=== PATIENT | male | born 1930 | race Caucasian/White ===

== ENCOUNTER → 2016-08-26 | Outpatient (CLI) | payer MEDICARE, BC ==
[2016-08-26 14:03] LABS: CH 33.4; CHCM 32.6; HCT 49.8 % (39.0-53.0); HDW 2.35; HGB 15.8 gm/dL (13.0-17.5); MCH 32.8 pg (25.0-35.0); MCHC 31.8 g/dL (31.0-37.0); Macrocytosis Slight; Mean Platelet Volume 8.1; RBC 4.83 m/uL (4.30-5.90); RDW 13.3 % (11.5-15.5); WBC 6.2 k/uL (3.8-10.6)
[2016-08-26 14:18] LABS: ALT 31 U/L (21-72); AST 24 U/L (17-59); Alkaline Phosphatase 45 U/L (38-126); Anion Gap 9 mmol/L; Bilirubin, Delta 0.6 mg/dL (0.0-0.2); Blood Urea Nitrogen 18 mg/dL (9-20); Calcium 9.6 mg/dL (8.4-10.2); Carbon Dioxide 31 mmol/L (22-30); Chloride 99 mmol/L (98-107); Digoxin <0.4 ng/mL; Glucose 108 mg/dL (74-99); Non-African American GFR(MDRD) >60 (>60 ml/min/1.73 sqM); Potassium 5.2 mmol/L (3.5-5.1); Sodium 139 mmol/L (137-145); Total Bilirubin 1.5 mg/dL (0.2-1.3); Total Protein 7.9 g/dL (6.3-8.2)
[2016-08-26 14:46] LABS: Hepatitis B Surface Ag Index 0.06
[2016-08-26 14:52] LABS: Hepatitis B Core IgM Index 0.05
[2016-08-26 15:04] LABS: Hepatitis C Virus IgG Index 0.31
[2016-08-26 15:09] LABS: Hepatitis C Virus IgG Ab Negative (Negative)
[2016-08-26 16:03] LABS: Hemoglobin A1C 5.7 % (4.2-6.1)
== END | disposition home or self-care (01) ==
LOC: LABWHC1 13:11
PROVIDERS: ATTEND Family Medicine
DX: E80.6 Other disorders of bilirubin metabolism (principal); R19.7 Diarrhea, unspecified; I48.91 Unspecified atrial fibrillation; I10 Essential (primary) hypertension; E11.9 Type 2 diabetes mellitus without complications
CPT/HCPCS: 36415; 80053; 80074; 80162; 82248; 83036; 85027

== ENCOUNTER → 2016-09-06 | Outpatient (CLI) | payer MEDICARE, BC | END | disposition home or self-care (01) | LOC: LABWHC1 12:36 | PROVIDERS: ATTEND Family Medicine | DX: R79.9 Abnormal finding of blood chemistry, unspecified (principal) | CPT/HCPCS: 36415; 84132 ==

== ENCOUNTER → 2017-03-16 | Outpatient (CLI) | payer MEDICARE, BC ==
[2017-03-16 11:50] LABS: CH 33.7; CHCM 32.1; HCT 53.9 % (39.0-53.0); HDW 2.31; HGB 17.1 gm/dL (13.0-17.5); MCH 33.5 pg (25.0-35.0); MCHC 31.7 g/dL (31.0-37.0); MCV 105.5 fL (80.0-100.0); Macrocytosis Moderate; Mean Platelet Volume 8.2; RBC 5.11 m/uL (4.30-5.90); RDW 14.2 % (11.5-15.5); WBC 6.1 k/uL (3.8-10.6)
[2017-03-16 12:02] LABS: ALT 38 U/L (21-72); AST 24 U/L (17-59); Alkaline Phosphatase 43 U/L (38-126); Anion Gap 9 mmol/L; Blood Urea Nitrogen 20 mg/dL (9-20); Calcium 9.4 mg/dL (8.4-10.2); Carbon Dioxide 32 mmol/L (22-30); Chloride 99 mmol/L (98-107); Cholesterol 171 mg/dL (<200); Glucose 110 mg/dL (74-99); HDL Cholesterol 57 mg/dL (40-60); Non-African American GFR(MDRD) >60 (>60 ml/min/1.73 sqM); Potassium 5.7 mmol/L (3.5-5.1); Sodium 140 mmol/L (137-145); Total Bilirubin 1.4 mg/dL (0.2-1.3); Total Protein 7.6 g/dL (6.3-8.2)
[2017-03-16 12:26] LABS: Digoxin <0.4 ng/mL
== END | disposition home or self-care (01) ==
LOC: LABWHC1 11:19
PROVIDERS: ATTEND Family Medicine
DX: I10 Essential (primary) hypertension (principal); E11.9 Type 2 diabetes mellitus without complications; I25.10 Atherosclerotic heart disease of native coronary artery without angina pectoris; I48.91 Unspecified atrial fibrillation
CPT/HCPCS: 36415; 80053; 80061; 80162; 83036; 85027

== ENCOUNTER 2017-08-22 12:30 | Day surgery (SDC) | payer MEDICARE, BC ==
[2017-08-14 13:15] VITALS: BMI 25.0
[~2017-08-22 12:30] MED LIST: LACTATED RINGERS 1,000 ML IV SCH; LIDOCAINE 1% 20 ML VIAL (10MG/ML) FOR IV START INTRADERMA PRN; ONDANSETRON 4 MG/2 ML VIAL IVP ONE
[2017-08-22 13:48] VITALS: RESP 16; TEMP 98.3
[2017-08-22] MEDS: PHENYLEPHRINE 10% OPHTH DROPS 5 ML BTL OP ONE ×3 (13:50→14:11)
[2017-08-22] MEDS: CYCLOPENTOLATE 1% OPHTH SOLN 2 ML BTL OP ONE ×3 (13:53→14:15)
[2017-08-22] MEDS: FLURBIPROFEN 0.03% OPHTH DROPS 2.5 ML BTL OP ONE ×3 (13:57→14:21)
[2017-08-22] MEDS: BUPIVACAINE (PF) 0.75% 5 ML, HYALURONIDASE, HUMAN RECOMB 150 UNIT, LIDOCAINE 2% (PF) 10... MISCELLANE ONE ×6 (14:28→14:40)
[2017-08-22] MEDS: GENTAMICIN/PREDNISOL AC OPHTH OINT 3.5GM OPHTHALMIC ONE ×2 (14:29→14:40)
[2017-08-22] MEDS: TIMOLOL 0.5% OPHTH SOLN (PF) 0.2 ML DROPERETTE OP ONE ×2 (14:29→14:40)
[2017-08-22] MEDS ORDERED: BALANCED SALT IRRIG SOLN COMB2 15 ML IRRIG.SOLN INTRAOCULA ONE ×2 (14:29→14:40)
[2017-08-22] MEDS ORDERED: HYALURONATE SODIUM INTRAOCULAR 1 EACH SYRINGE (10MG/ML) INTRAOCULA ONE ×4 (14:30→14:40)
[2017-08-22] MEDS ORDERED: PROPOFOL 10 MG/ML 20 ML VIAL IV ONE (14:33)
[2017-08-22] MEDS ORDERED: EPINEPHrine (PF) 0.5 ML in BALANCED SALT IRRIG SOLN COMB2 500 ML IRRIGATION ONE (15:01)
[2017-08-22] MEDS ORDERED: ACETYLCHOLINE CHLORIDE 10 MG/ML 2 ML KIT INTRAOCULA ONE (15:05)
--- NOTE | 2017-08-22 15:12 | P.OP ---
Date of Procedure: 08/22/17 Procedure(s) Performed: PREOPERATIVE DIAGNOSIS: Cataract and Glaucoma, right eye. POSTOPERATIVE DIAGNOSIS: Cataract and Glaucoma, right eye. OPERATION: Phacoemulsification cataract, lens placement, I-stent insertion, right eye. DESCRIPTION OF PROCEDURE: The patient was taken to the preoperative holding area. Intravenous Propofol was given so as to bring about adequate sedation. The following mixture was given for local anesthesia: 5 mL of 2% lidocaine, 5 mL of 0.75% Marcaine, and 1 mL of Wydase. Approximately 4 mL was injected in the retrobulbar space of the surgical eye. Additional 1 mL was then directed to the temporal area of the surgical eye. This was performed to allow adequate neurological block of the facial muscles. The patient was revived and then taken into the operative room. The patient was prepped and draped in the usual sterile manner for the operative eye. A lid speculum was put into position. The conjunctiva was resected back from the limbus in the 12 o'clock position. Bleeding was controlled with electrocautery. A #69 blade was then used and a half-thickness scleral incision approximately 1-mm posterior to the limbus was made on bare sclera. This was shelved in the clear cornea using a crescent knife. Next a 15-degree blade was used to make a stab incision at the 3 o' clock position at the corneolimbal interface. Keratome blade was then used and the superior wound was extended into the anterior chamber. Viscoelastic was injected into the anterior chamber and to maintain its form. An I-stent was placed into position without difficulty. Next, a cystotome was used and a continuous anterior capsulotomy was made without difficulty. Hydrodissection using a blunt cannula and BSS was performed. Phaco probe was then employed and a groove extending from 12 to 6 o'clock in the lens was created. A Vasyl wand was used through the stab incision so as to perform a divide and conquer technique. Next an irrigation aspiration probe was utilized and any residual cortex was removed from the eye. Again, viscoelastic was injected into the anterior chamber. An Lexa posterior chamber lens implant was placed in the cartridge and injected into the anterior chamber without difficulty. The [place] hook was utilized to spin the lens into position and this was again performed without any difficulty. The irrigation and aspiration probe was again employed and any residual viscoelastic was removed from the eye. BSS and miochol was injected into the limbal stab incision and the anterior chamber re- inflated. The conjunctiva was reapproximated using electrocautery. One drop of 0.25% Timoptic was placed over the corneal along with TobraDex ophthalmic ointment. Two sterile patches and a Mcbride eye shield were taped into position. The patient was transported to the recovery room in stable condition. Pathology: none sent Condition: stable Disposition: same day
[2017-08-22 15:44] VITALS: BP 169/73; PULSE 46
== END 2017-08-22 15:52 | disposition home or self-care (01) ==
LOC: OR 12:30
PROVIDERS: ATTEND Ophthalmology
DX: H26.9 Unspecified cataract (principal); H40.1110 Primary open-angle glaucoma, right eye, stage unspecified; I10 Essential (primary) hypertension; I51.9 Heart disease, unspecified; I49.9 Cardiac arrhythmia, unspecified; Z79.01 Long term (current) use of anticoagulants; Z79.899 Other long term (current) drug therapy; Z87.891 Personal history of nicotine dependence; Z88.6 Allergy status to analgesic agent
CPT/HCPCS: 66984; 66183; V2632; C1783; J3470; J2001; J0171; J2704

== ENCOUNTER 2017-10-03 11:14 | Day surgery (SDC) | payer MEDICARE, BC ==
[2017-09-29 09:01] VITALS: BMI 25.6
[2017-10-03] MEDS: PHENYLEPHRINE 10% OPHTH DROPS 5 ML BTL OP ONE ×3 (12:00→12:17)
[2017-10-03] MEDS: CYCLOPENTOLATE 1% OPHTH SOLN 2 ML BTL OP ONE ×3 (12:03→12:19)
[2017-10-03 12:04] VITALS: RESP 18; TEMP 97.7
[2017-10-03] MEDS: FLURBIPROFEN 0.03% OPHTH DROPS 2.5 ML BTL OP ONE ×3 (12:06→12:20)
[2017-10-03] MEDS: LACTATED RINGERS 1,000 ML IV SCH ×2 (12:12→12:20)
[2017-10-03] MEDS ORDERED: PROPOFOL 10 MG/ML 20 ML VIAL IV ONE (12:22)
[2017-10-03] MEDS ORDERED: EPINEPHrine (PF) 0.5 ML in BALANCED SALT IRRIG SOLN COMB2 500 ML IRRIGATION ONE (12:26)
[2017-10-03] MEDS ORDERED: HYALURONATE SODIUM INTRAOCULAR 1 EACH SYRINGE (10MG/ML) INTRAOCULA ONE (12:27)
[2017-10-03] MEDS ORDERED: BALANCED SALT IRRIG SOLN COMB2 15 ML IRRIG.SOLN INTRAOCULA ONE (12:27)
--- NOTE | 2017-10-03 12:51 | P.OP ---
Date of Procedure: 10/03/17 Procedure(s) Performed: PREOPERATIVE DIAGNOSIS: Cataract and Glaucoma, left eye. POSTOPERATIVE DIAGNOSIS: Cataract and Glaucoma, left eye. OPERATION: Phacoemulsification, 1. Cataract removal, lens implant left eye. 2. I-stent placement left eye DESCRIPTION OF PROCEDURE: The patient was taken to the preoperative holding area. Intravenous Propofol was given so as to bring about adequate sedation. The following mixture was given for local anesthesia: 5 mL of 2% lidocaine, 5 mL of 0.75% Marcaine, and 1 mL of Wydase. Approximately 4 mL was injected in the retrobulbar space of the surgical eye. Additional 1 mL was then directed to the temporal area of the surgical eye. This was performed to allow adequate neurological block of the facial muscles. The patient was revived and then taken into the operative room. The patient was prepped and draped in the usual sterile manner for the operative eye. A lid speculum was put into position. The conjunctiva was resected back from the limbus in the 12 o'clock position. Bleeding was controlled with electrocautery. A #69 blade was then used and a half-thickness scleral incision approximately 1-mm posterior to the limbus was made on bare sclera. This was shelved in the clear cornea using a crescent knife. Next a 15-degree blade was used to make a stab incision at the 3 o' clock position at the corneolimbal interface. Keratome blade was then used and the superior wound was extended into the anterior chamber. Viscoelastic was injected into the anterior chamber and to maintain its form. Using a hand held gonioprism for guidance, an I-stent was placed thru the inferior trabecular meshwork and into Schlemm's canal. It was strummed to ensure proper placement. Next, a cystotome was used and a continuous anterior capsulotomy was made without difficulty. Hydrodissection using a blunt cannula and BSS was performed. Phaco probe was then employed and a groove extending from 12 to 6 o'clock in the lens was created. A Vasyl wand was used through the stab incision so as to perform a divide and conquer technique. Next an irrigation aspiration probe was utilized and any residual cortex was removed from the eye. Again, viscoelastic was injected into the anterior chamber. An Lexa posterior chamber lens implant was placed in the cartridge and injected into the anterior chamber without difficulty. The [place] hook was utilized to spin the lens into position and this was again performed without any difficulty. The irrigation and aspiration probe was again employed and any residual viscoelastic was removed from the eye. Then BSS was injected into the limbal stab incision and the anterior chamber re-inflated. The conjunctiva was reapproximated using electrocautery. One drop of 0.25% Timoptic was placed over the corneal along with TobraDex ophthalmic ointment. Two sterile patches and a Mcbride eye shield were taped into position. The patient was transported to the recovery room in stable condition. Pathology: none sent Condition: stable Disposition: same day
[2017-10-03 13:13] VITALS: BP 158/78; PULSE 54
[2017-10-03] MEDS ORDERED: GENTAMICIN/PREDNISOL AC OPHTH OINT 3.5GM OPHTHALMIC ONE (23:00)
[2017-10-03] MEDS ORDERED: BUPIVACAINE (PF) 0.75% 5 ML, HYALURONIDASE, HUMAN RECOMB 150 UNIT, LIDOCAINE 2% (PF) 10... MISCELLANE ONE ×3 (23:00)
[2017-10-03] MEDS ORDERED: TIMOLOL 0.5% OPHTH DROPS 5 ML BTL OP ONE (23:00)
== END 2017-10-03 13:58 | disposition home or self-care (01) ==
LOC: OR 11:14
PROVIDERS: ATTEND Ophthalmology
DX: H26.9 Unspecified cataract (principal); H40.9 Unspecified glaucoma; I48.91 Unspecified atrial fibrillation; I10 Essential (primary) hypertension; I27.20 Pulmonary hypertension, unspecified; Z87.891 Personal history of nicotine dependence; Z98.41 Cataract extraction status, right eye; Z96.1 Presence of intraocular lens; Z88.6 Allergy status to analgesic agent; Z79.01 Long term (current) use of anticoagulants; Z79.899 Other long term (current) drug therapy
CPT/HCPCS: 0191T; 66984

== ENCOUNTER 2017-10-29 03:06 | Emergency (ER) | payer OTHER, MEDICARE, BC ==
[2017-10-29 03:20] VITALS: TEMP 98.2
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
[2017-10-29] MEDS ORDERED: MORPHINE SULF 5MG/10ML VL IV STA (04:13)
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
[2017-10-29] MEDS ORDERED: RX INFO: IV CONTRAST WAS GIVEN 1 EACH MISC MISCELLANE PRN (04:19)
[2017-10-29 04:24] LABS: Appearance,Urine Clear (Clear); Basophils % (A) 0 %; Bilirubin,Urine Negative (Negative); Blood,Urine Negative (Negative); Color,Urine Yellow; Eosinophils # (A) 0.1 k/uL (0-0.7); Eosinophils % (A) 1 %; Glucose,Urine (UA) 3+ (Negative); HCT 48.9 % (39.0-53.0); HGB 16.1 gm/dL (13.0-17.5); Leukocyte Esterase,Urine Negative (Negative); Lymphocytes # (A) 0.9 k/uL (1.0-4.8); Lymphocytes % (A) 10 %; MCH 32.6 pg (25.0-35.0); MCV 98.8 fL (80.0-100.0); Monocytes # (A) 0.5 k/uL (0-1.0); Monocytes % (A) 5 %; Neutrophils # (A) 7.5 k/uL (1.3-7.7); Neutrophils % (A) 83 %; Nitrite,Urine Negative (Negative); PH, Urine 6.5 (5.0-8.0); Platelet Count 117 k/uL (150-450); Protein,Urine Trace (Negative); RBC 4.95 m/uL (4.30-5.90); RDW 13.8 % (11.5-15.5); Specific Gravity,Urine 1.015 (1.001-1.035); Urobilinogen,Urine <2.0 mg/dL (<2.0); WBC 9.1 k/uL (3.8-10.6)
[2017-10-29 04:31] LABS: INR 2.8 (<1.2); Partial Thromboplastin Time 27.3 sec (22.0-30.0); Prothrombin Time 25.5 sec (9.0-12.0)
[2017-10-29 04:34] LABS: ALT 22 U/L (21-72); AST 24 U/L (17-59); Albumin 4.1 g/dL (3.5-5.0); Alcohol <10 mg/dL; Alkaline Phosphatase 54 U/L (38-126); Anion Gap 14 mmol/L; Blood Urea Nitrogen 22 mg/dL (9-20); Calcium 9.8 mg/dL (8.4-10.2); Carbon Dioxide 27 mmol/L (22-30); Chloride 99 mmol/L (98-107); Glucose 154 mg/dL (74-99); Potassium 4.7 mmol/L (3.5-5.1); Sodium 140 mmol/L (137-145); Total Bilirubin 1.6 mg/dL (0.2-1.3); Total Protein 7.7 g/dL (6.3-8.2)
[2017-10-29 04:35] LABS: Amphetamine Screen,Urine Not Detected (NotDetected); Barbiturate Screen,Urine Not Detected (NotDetected); Benzodiazepines Screen,Urine Not Detected (NotDetected); Cocaine Screen,Urine Not Detected (NotDetected); Methadone Screen, Urine Not Detected (NotDetected); Opiate Screen,Urine Not Detected (NotDetected); Oxycodone Screen, Urine Not Detected (NotDetected); Phencyclidine Screen,Urine Not Detected (NotDetected); Tricyclic Antidepressant,Urine Not Detected (NotDetected); Urn Cannabinoid Scrn Not Detected (NotDetected)
[2017-10-29 04:41] LABS: Ketones,Urine 2+ (Negative)
[2017-10-29 05:09] VITALS: BP 187/98; PULSE 78; RESP 16
--- NOTE | 2017-10-29 05:22 | CT ---
EXAM: CT Chest With Intravenous Contrast CLINICAL HISTORY: ITS.REASON CT Reason: Pain TECHNIQUE: Axial computed tomography images of the chest with intravenous contrast. CTDI is 11.8 mGy and DLP is 891.3 mGy-cm. This CT exam was performed using one or more of the following dose reduction techniques: automated exposure control, adjustment of the mA and/or kV according to patient size, and/or use of iterative reconstruction technique. COMPARISON: No relevant prior studies available. FINDINGS: Lungs: Left lower lobe atelectasis. Pleural space: Scattered pleural-based calcifications. No pneumothorax. No significant effusion. Heart: Coronary artery calcifications. No significant pericardial effusion. Bones/joints: Unremarkable. No acute fracture. No dislocation. Soft tissues: Unremarkable. Vasculature: Unremarkable. No thoracic aortic aneurysm. Lymph nodes: Subcentimeter mediastinal lymph nodes. IMPRESSION: No acute findings. Left lower lobe atelectasis. EXAM: CT Abdomen and Pelvis With Intravenous Contrast CLINICAL HISTORY: ITS.REASON CT Reason: Pain TECHNIQUE: Axial computed tomography images of the abdomen and pelvis with intravenous contrast. CTDI is 11.8 mGy and DLP is 891.3 mGy-cm. This CT exam was performed using one or more of the following dose reduction techniques: automated exposure control, adjustment of the mA and/or kV according to patient size, and/or use of iterative reconstruction technique. COMPARISON: No relevant prior studies available. FINDINGS: Lung bases: Unremarkable. No mass. No consolidation. ABDOMEN: Liver: Unremarkable. No mass. Gallbladder and bile ducts: Unremarkable. No calcified stones. No ductal dilation. Pancreas: Unremarkable. No mass. No ductal dilation. Spleen: Unremarkable. No splenomegaly. Adrenals: Unremarkable. No mass. Kidneys and ureters: Unremarkable. No solid mass. No hydronephrosis. Stomach and bowel: Scattered colonic diverticula without evidence of acute inflammation. No obstruction. No mucosal thickening. Appendix: No findings to suggest acute appendicitis. PELVIS: Bladder: Unremarkable. No mass. Reproductive: Unremarkable as visualized. ABDOMEN and PELVIS: Intraperitoneal space: Unremarkable. No free air. No significant fluid collection. Bones/joints: No acute fracture. No dislocation. Soft tissues: Unremarkable. Vasculature: 3.4 cm infrarenal abdominal aortic aneurysm. Lymph nodes: Unremarkable. No enlarged lymph nodes. IMPRESSION: No acute findings. 3.4 cm infrarenal abdominal aortic aneurysm. Colonic diverticulosis.
== END 2017-10-29 05:15 | disposition other institution (70) ==
LOC: EC 03:06
DX: S06.309A Unspecified focal traumatic brain injury with loss of consciousness of unspecified duration, initial encounter (principal); I48.91 Unspecified atrial fibrillation; I10 Essential (primary) hypertension; Z95.818 Presence of other cardiac implants and grafts; Z87.891 Personal history of nicotine dependence; Z79.01 Long term (current) use of anticoagulants; Z79.899 Other long term (current) drug therapy; Z88.6 Allergy status to analgesic agent; V49.40XA Driver injured in collision with unspecified motor vehicles in traffic accident, initial encounter; Y92.410 Unspecified street and highway as the place of occurrence of the external cause
CPT/HCPCS: 99291; 96374; 36415; 93005; 86900; 86901; 80053; 83605; 84484; 85025; 85610; 85730; 86850; 81003; 80306; 80320; 72170; 71045; 72125; 70450; 71260; 74177; Q9967; J2270

== ENCOUNTER → 2018-03-22 | Outpatient (CLI) | payer MEDICARE, BC ==
[2018-03-22 16:02] LABS: HCT 46.2 % (39.0-53.0); HGB 14.2 gm/dL (13.0-17.5); MCH 31.7 pg (25.0-35.0); MCHC 30.6 g/dL (31.0-37.0); MCV 103.4 fL (80.0-100.0); Macrocytosis Slight; Mean Platelet Volume 7.5; Platelet Count 157 k/uL (150-450); RBC 4.47 m/uL (4.30-5.90); RDW 12.5 % (11.5-15.5); WBC 7.2 k/uL (3.8-10.6)
[2018-03-22 16:20] LABS: Calcium 9.4 mg/dL (8.4-10.2); Potassium 5.1 mmol/L (3.5-5.1)
[2018-03-23 01:55] LABS: Hemoglobin A1C 5.5 % (4.0-6.0)
== END | disposition home or self-care (01) ==
LOC: LABWHC1 15:21
PROVIDERS: ATTEND Family Medicine
DX: E11.9 Type 2 diabetes mellitus without complications (principal); I10 Essential (primary) hypertension
CPT/HCPCS: 36415; 80048; 83036; 84450; 84460; 85027

== ENCOUNTER 2018-06-25 13:38 | Emergency (ER) | payer MEDICARE, BC ==
[2018-06-25 14:00] VITALS: RESP 18; TEMP 98.2
--- NOTE | 2018-06-25 14:31 | ED ---
Fall HPI <Jorge L Garcia - Last Filed: 06/25/18 15:40> - General Source: patient, EMS, RN notes reviewed, old records reviewed Mode of arrival: EMS <Vira Andres - Last Filed: 06/25/18 16:19> - General Chief Complaint: Fall Stated Complaint: Fall head injury Time Seen by Provider: 06/25/18 13:44 - History of Present Illness Initial Comments: Patient is an 87-year-old male, presents emergency Department after trip and fall. He reports that he hit his head. Also complains of right shoulder pain. Patient reports that he was walking when he lost his balance. He arrived via EMS. The he does report significant contusion over the right side of his scalp. He reports pain with any range of motion of the right shoulder. Patient reports that he had a previous brain bleed approximately 6 months ago. ( Vira Andres) - Related Data Home Medications Medication Instructions Recorded Confirmed Dorzolamide/Timolol/Pf [Cosopt Pf 1 applicator BOTH EYES BID 08/14/17 06/25/18 2%/5% Ophth Droperette] Latanoprost Ophth [Xalatan 0.005%] 1 drops RIGHT EYE HS 08/14/17 06/25/18 Losartan [Cozaar] 50 mg PO DAILY 08/14/17 06/25/18 amLODIPine BESYLATE 5 mg PO DAILY 06/25/18 06/25/18 Allergies Allergy/AdvReac Type Severity Reaction Status Date / Time aspirin AdvReac Abdominal Verified 06/25/18 14:09 Pain AND BLEEDING Review of Systems ROS Other: All systems not noted in ROS Statement are negative. <Jorge L Garcia - Last Filed: 06/25/18 15:40> ROS Other: All systems not noted in ROS Statement are negative. <Vira Andres - Last Filed: 06/25/18 16:19> ROS Statement: Those systems with pertinent positive or pertinent negative responses have been documented in the HPI. Past Medical History Past Medical History: Atrial Fibrillation, Hypertension, Osteoarthritis (OA) Additional Past Medical History / Comment(s): brain bleed History of Any Multi-Drug Resistant Organisms: None Reported Past Surgical History: Heart Catheterization Additional Past Surgical History / Comment(s): ANGIOGRAM OF THE NECK, Catatracts.States he had carotid artery surgery. Past Anesthesia/Blood Transfusion Reactions: No Reported Reaction Past Psychological History: No Psychological Hx Reported Smoking Status: Former smoker Past Alcohol Use History: Daily Past Drug Use History: None Reported - Past Family History Mother Family Medical History: No Reported History <Viar Andres - Last Filed: 06/25/18 16:19> General Exam <Jorge L Garcia - Last Filed: 06/25/18 15:40> Limitations: no limitations General appearance: alert, in no apparent distress, other Head exam: Present: normocephalic, normal inspection. Absent: atraumatic ( Contusion over ) Eye exam: Present: normal appearance, PERRL, EOMI. 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 Absent: systolic murmur, diastolic murmur, rubs, gallop, clicks Right Shoulder Exam: Present: tenderness (Patient is unable to perform any range of motion of the shoulder due to pain.). Absent: normal inspection, full ROM Upper Arm exam: Present: normal inspection, full ROM Elbow exam: Present: full ROM. Absent: normal inspection (Is no skin tear over the elbow.) Hand Wrist exam: Present: normal inspection Neuro motor exam: Present: wrist extension intact, thumb opposition intact, thumb IP flexion intact, thumb adduction intact, fingers 2-5 abduction intact Back exam: Present: normal inspection Neurological exam: Present: alert, oriented X3, CN II-XII intact Psychiatric exam: Present: normal affect, normal mood Skin exam: Present: warm, dry, intact, normal color. Absent: rash <Vira Andres - Last Filed: 06/25/18 16:19> - General Exam Comments Initial Comments: Patient states showed male. Alert and oriented 3. (Vira Andres) Course <Jorge L Garcia - Last Filed: 06/25/18 15:40> <Vira Andres - Last Filed: 06/25/18 16:19> Vital Signs 06/25/18 06/25/18 13:55 15:27 Temperature 98.2 F Pulse Rate 77 90 Respiratory 18 18 Rate Blood Pressure 174/89 175/105 O2 Sat by Pulse 98 97 Oximetry - Reevaluation(s) Reevaluation #1: 06/25/18 16:01 Delayed transfer because Patient was adamant that he was going to go. I had a call his daughter to convince him to be willing to transfer to [facility]. ( Vira Andres) Medical Decision Making <Jorge L Garcia - Last Filed: 06/25/18 15:40> - Radiology Data Radiology results: report reviewed <Vira Andres - Last Filed: 06/25/18 16:19> - Medical Decision Making Patient with fall, head trauma, previous history of intracranial hemorrhage. Head CT is obtained, does show 4 mm subarachnoid hemorrhage. I did reevaluate the patient after head CT findings. He has a nonfocal neurologic exam. Patient is alert and oriented, he is refusing transport at this time for neurosurgical evaluation. We will discuss the findings with the patient's daughter by telephone. We will continue to encourage the patient to accept transfer for further evaluation and treatment. (Jorge L Garcia) Patient is a 7-year-old male presents today after trip and fall. He has significant contusion over the right frontal parietal scalp. Patient is alert and oriented 3. No neurological deficits. He reports he is not on any blood thinners at this time. Patient also has contusion and skin tears over the right elbow and right hand. CT of his brain and C-spine were completed. Positive for subarachnoid hemorrhage. No mass effect noted. Patient initially did not want to transfer to higher level of care. Patient daughter was then contacted. She helped persuade the Patient to proceed in transferring to a high level of care. We will give the Patient labetalol for blood pressure management at this time. Also started on IV Keppra. Patient's excepting physician is Dr. Hinojosa. (Vira Andres) - Radiology Data A few tiny foci of subacute subarachnoid blood in the bifrontal regions. Measuring 4 mm. No mass effect or other acute intracranial abnormality noted. There is no bowel movement of encephalomalacia posterior left parietal lobe left occipital parietal junction of the site of previous large intraparenchymal hematoma. There is moderate enlargement frontal scalp hematoma. Severe patchy changes of chronic small vessel ischemic disease. Partially visualized cystic lesion in the anterior maxilla. This was visualized on . (Vira Andres) Disposition <Jorge L Garcia - Last Filed: 06/25/18 15:40> Is patient prescribed a controlled substance at d/c from ED?: No Time of Disposition: 16:10 - Out of Hospital Transfer - Req. Specs Out of Hospital Transfer - Requested Specifics: Other Emergency Center ([facility]) <Vira Andres - Last Filed: 06/25/18 16:19> Clinical Impression: Subarachnoid bleed, Right shoulder injury, Skin tear of elbow without complication Disposition: DC/TRNS INTERMEDIATE CARE FAC Condition: Stable Referrals: Nolan Larson DO [Primary Care Provider] - 1-2 days
[2018-06-25] MEDS ORDERED: levETIRAcetam IV 1,000 MG in SALINE 1 100ML.BAG IVPB STA (15:19)
--- NOTE | 2018-06-25 15:21 | CT ---
EXAMINATION TYPE: CT brain lora wo con DATE OF EXAM: 06/25/2018 COMPARISON: 10/29/2017 and 09/11/2014 HISTORY: 87-year-old male with pain after Fall, right frontal injury. CT DLP: 1305.7 mGycm Automated exposure control for dose reduction was used. Technique: Examination of the head was done in axial plane without intravenous contrast. Coronal and sagittal reconstructions performed. CT of the cervical spine was obtained in axial plane without intravenous injection of contrast mater ial. Coronal and sagittal reformatted images were obtained from the axial views for evaluation of f ractures, spinal alignment and canal. FINDINGS: Head: Partially visualized possible large or odontogenic cyst within the anterior midline maxilla, referenc e axial image 1. Paranasal sinuses and mastoid air cells are well pneumatized. Orbits and globes are intact. Moderate to large frontal mixed hematoma and scalp contusion. There minimal foci of subarachnoid bloo d in the bifrontal regions measuring up to 4 mm, refer to axial images 44 and 45. Encephalomalacia at the posterior left parietal lobe and left occipital parietal junction at site of prior intraparenchymal hematoma. Benign basal ganglionic calcifications. Mild ventriculomegaly likely secondary to central cerebral at rophy is similar. Moderate to severe patchy white matter hypodensities in the posterior hemispheres l ikely relating to chronic small vessel ischemic disease. No other extra-axial fluid collection. No shift or herniation seen. No calvarial fracture. Cervical spine: No craniocervical junction abnormality, predental space widening, or prevertebral soft tissue swellin g. Degenerative changes at the C1 dens articulation. Some degenerative interbody ankylosis at C2-C3 w ith stable grade 1 anterolisthesis at C3-C4 and C4-C5. Moderate endplate spondylosis is seen throughout. Disc osteophyte complexes are present throughout th e mid and lower cervical spine resulting in very mild neuroforaminal narrowing. Ligamentum flavum thickening suggested in the upper cervical spine also likely contributing to mild n arrowing of the spinal canal. Multilevel facet and uncovertebral joint arthropathy is present. Very minimal moderate bilateral neural foraminal stenoses results, more moderate to severe on the rig ht at C3-C4. Sagittal and coronal reformatted images confirm above findings. COMBINED IMPRESSION: Head: 1. A few tiny foci of acute subarachnoid blood in the bifrontal regions (approximately 3 foci) measur ing up to 4 mm. No mass effect other acute intracranial abnormality seen. 2. Development of encephalomalacia posterior left parietal lobe and left occipital parietal junction at the site of previous large intraparenchymal hematoma. 3. Moderate to large mixed right frontal scalp hematoma. No calvarial fracture. 4. Severe patchy changes of chronic small vessel ischemic disease. 5. Partially visualized cystic lesion in the anterior maxilla probably of odontogenic origin. In retr ospect, this is also partially visualized on 10/29/2017. Critical finding called to Dr. Garcia in the ER at 3:19 PM. Cervical spine: 6. No acute fracture of the cervical spine. 7. Moderate multilevel spondylotic change redemonstrated with degenerative grade 1 anterolisthesis at -C4 and C4-C5.
[2018-06-25] MEDS ORDERED: LABETALOL 5 MG/ML VIAL MDV IVP STA (16:01)
[2018-06-25] MEDS ORDERED: DIPH,PERTUS(ACELL)TETVAC-LF 0.5 ML VIAL IM ONE (16:08)
[2018-06-25] MEDS ORDERED: TOPICAL SKIN ADHESIVE 1 EACH AMP TOPICAL ONE (16:08)
--- NOTE | 2018-06-25 16:51 | XR ---
EXAMINATION TYPE: XR shoulder complete 3 views RT, XR forearm 2 views RT DATE OF EXAM: 06/25/2018 COMPARISON: NONE HISTORY: 87-year-old male with trip and fall today, pain FINDINGS: Right shoulder: Mild to moderate degenerative change at the acromioclavicular joint. There is loss of the subacromial space with irregularity and rounded appearance to the greater tuberosity. Mild degenerative spurring at the glenohumeral joint. Suggestion of 8mm loose body along the axillary recess. Right forearm: Bony spurring at both medial and lateral epicondyles. No elbow joint effusion. No acute fracture. Wri st and elbow articulations are grossly intact. IMPRESSION: 1. Right shoulder: Chronic full-thickness rotator cuff tear. Mild AC joint OA. Mild degenerative spur ring at the glenohumeral joint. No acute osseous abnormality seen. 2. Right forearm: No acute osseous abnormality seen.
[2018-06-25 17:08] LABS: Basophils % (A) 0 %; Eosinophils # (A) 0.2 k/uL (0-0.7); Eosinophils % (A) 2 %; HCT 48.4 % (39.0-53.0); HGB 15.3 gm/dL (13.0-17.5); Lymphocytes # (A) 0.7 k/uL (1.0-4.8); Lymphocytes % (A) 7 %; MCHC 31.6 g/dL (31.0-37.0); MCV 101.1 fL (80.0-100.0); Macrocytosis Slight; Mean Platelet Volume 9.4; Monocytes # (A) 0.4 k/uL (0-1.0); Monocytes % (A) 5 %; Neutrophils # (A) 8.3 k/uL (1.3-7.7); Neutrophils % (A) 86 %; Platelet Count 134 k/uL (150-450); RBC 4.79 m/uL (4.30-5.90); RDW 14.1 % (11.5-15.5); WBC 9.7 k/uL (3.8-10.6)
[2018-06-25 17:10] VITALS: BP 133/80; PULSE 79
[2018-06-25 17:14] LABS: INR 1.1 (<1.2); Partial Thromboplastin Time 22.1 sec (22.0-30.0); Prothrombin Time 10.8 sec (9.0-12.0)
[2018-06-25 17:15] LABS: Anion Gap 8 mmol/L; Blood Urea Nitrogen 18 mg/dL (9-20); Calcium 9.2 mg/dL (8.4-10.2); Carbon Dioxide 26 mmol/L (22-30); Chloride 102 mmol/L (98-107); Glucose 127 mg/dL (74-99); Sodium 136 mmol/L (137-145)
[2018-06-25 17:17] LABS: Potassium 5.3 mmol/L (3.5-5.1)
--- NOTE | 2018-06-27 03:25 | CDI ---
Documentation Clarification OP Dear Vira Chiu Please provide hand & elbow laceration repair note. Thank you, Sadaf Lucas Mail Handler Equipment Operator If you have any questions, please contact Internet Developer at [phone] [facility]
== END 2018-06-25 17:44 ==
LOC: EC 13:38
DX: S06.6X0A Traumatic subarachnoid hemorrhage without loss of consciousness, initial encounter (principal); S00.03XA Contusion of scalp, initial encounter; S51.011A Laceration without foreign body of right elbow, initial encounter; S61.411A Laceration without foreign body of right hand, initial encounter; S49.91XA Unspecified injury of right shoulder and upper arm, initial encounter; I10 Essential (primary) hypertension; M19.90 Unspecified osteoarthritis, unspecified site; Z86.69 Personal history of other diseases of the nervous system and sense organs; Z95.818 Presence of other cardiac implants and grafts; Z87.891 Personal history of nicotine dependence; Z98.49 Cataract extraction status, unspecified eye; Z98.890 Other specified postprocedural states; Z23 Encounter for immunization; Z79.899 Other long term (current) drug therapy; Z88.6 Allergy status to analgesic agent; W01.10XA Fall on same level from slipping, tripping and stumbling with subsequent striking against unspecified object, initial encounter; Y93.01 Activity, walking, marching and hiking; Y92.89 Other specified places as the place of occurrence of the external cause
CPT/HCPCS: 99285; 96374; 96375; 90471; 36415; 80048; 85025; 85610; 85730; 73030; 73090; 72125; 70450; 90715; J1953

== ENCOUNTER 2018-12-06 15:04 | Emergency (ER) | payer MEDICARE, BC ==
[2018-12-06] MEDS ORDERED: SODIUM CHLORIDE 0.9% 1,000 ML IV STA (15:29)
[2018-12-06] MEDS ORDERED: SODIUM CHLORIDE 0.9% 500 ML 500 ML IV STA ×2 (15:29→16:43)
--- NOTE | 2018-12-06 15:45 | ED ---
Syncope HPI - General Chief Complaint: Dizziness Stated Complaint: Dizziness Time Seen by Provider: 12/06/18 15:04 Source: patient, EMS, RN notes reviewed Mode of arrival: EMS Limitations: no limitations - History of Present Illness Initial Comments: This 88-year-old male who presents by EMS with complaints of almost passing out he states he feels dizzy very tries get up and walk. Per his friend who came in later with him that he's been having upper respiratory congestion cough sneezing a lot. She believes she had the flu. He denies any overt fevers chills nausea vomiting sweats or other symptoms he does have a pacemaker he states it was checked out a couple weeks ago. He denies any other complaints this time patient initially states he has been having intermittent episodes of numbness to his finger tips. MD Complaint: almost passed out - Related Data Home Medications Medication Instructions Recorded Confirmed Dorzolamide/Timolol/Pf [Cosopt Pf 1 drop BOTH EYES BID 08/14/17 12/06/18 2%/5% Ophth Droperette] Latanoprost Ophth [Xalatan 0.005%] 1 drops RIGHT EYE HS 08/14/17 12/06/18 Aspirin EC [Ecotrin Low Dose] 81 mg PO Q48H 12/06/18 12/06/18 hydrALAZINE HCL [Apresoline] 25 mg PO BID 12/06/18 12/06/18 Allergies Allergy/AdvReac Type Severity Reaction Status Date / Time aspirin AdvReac Abdominal Verified 12/06/18 15:30 Pain AND BLEEDING Review of Systems ROS Statement: Those systems with pertinent positive or pertinent negative responses have been documented in the HPI. ROS Other: All systems not noted in ROS Statement are negative. Past Medical History Past Medical History: Atrial Fibrillation, Hypertension, Osteoarthritis (OA) Additional Past Medical History / Comment(s): brain bleed History of Any Multi-Drug Resistant Organisms: None Reported Past Surgical History: Heart Catheterization Additional Past Surgical History / Comment(s): ANGIOGRAM OF THE NECK, Catatracts.States he had carotid artery surgery. Past Anesthesia/Blood Transfusion Reactions: No Reported Reaction Past Psychological History: No Psychological Hx Reported Smoking Status: Former smoker Past Alcohol Use History: Daily Past Drug Use History: None Reported - Past Family History Mother Family Medical History: No Reported History General Exam - General Exam Comments Initial Comments: This is a well-developed well-nourished awake alert oriented 3 male Limitations: no limitations General appearance: alert, in no apparent distress Head exam: Present: atraumatic, normocephalic, normal inspection Eye exam: Present: normal appearance, PERRL, EOMI. Absent: scleral icterus, conjunctival injection, periorbital swelling ENT exam: Present: mucous membranes dry Neck exam: Present: normal inspection, full ROM, other (No stridor JVD or bruits). Absent: tenderness, meningismus, lymphadenopathy Respiratory exam: Present: normal lung sounds bilaterally. Absent: respiratory distress, wheezes, rales, rhonchi, stridor Cardiovascular Exam: Present: regular rate, normal rhythm, normal heart sounds. Absent: systolic murmur, diastolic murmur, rubs, gallop, clicks GI/Abdominal exam: Present: soft, normal bowel sounds. Absent: distended, tenderness, guarding, rebound, rigid, bruit, pulsatile mass Extremities exam: Present: normal inspection, full ROM, normal capillary refill. Absent: tenderness, pedal edema, joint swelling, calf tenderness Back exam: Present: normal inspection Neurological exam: Present: alert, oriented X3, CN II-XII intact Psychiatric exam: Present: normal affect, normal mood Skin exam: Present: warm, dry, intact, normal color. Absent: rash Course Vital Signs 12/06/18 12/06/18 15:08 16:13 Temperature 98.8 F Pulse Rate 64 Pulse Rate [ 64 Sitting] Pulse Rate [ 89 Standing] Pulse Rate [ 59 L Supine] Respiratory 18 Rate Blood Pressure 170/95 Blood Pressure 159/85 [Sitting] Blood Pressure 169/118 [Standing] Blood Pressure 161/82 [Supine] O2 Sat by Pulse 98 Oximetry EKG Findings - EKG Results: EKG: interpreted by ERMD (Pacemaker rhythm with some overriding PVCs rate was 68 QRS 112 QT since QTC 46/431 consistent with A. fib) Medical Decision Making - Medical Decision Making Totally back to normal and improved he does demonstrate evidence of dehydration. He'll be discharged after IV fluids he does not want stay in hospital today. - Lab Data Result diagrams: 12/06/18 15:10 12/06/18 15:10 Lab Results 12/06/18 12/06/18 12/06/18 Range/Units 15:10 15:10 15:10 WBC 6.1 (3.8-10.6) k/uL RBC 4.50 (4.30-5.90) m/uL Hgb 14.5 (13.0-17.5) gm/dL Hct 45.7 (39.0-53.0) % MCV 101.5 H (80.0-100.0) fL MCH 32.1 (25.0-35.0) pg MCHC 31.7 (31.0-37.0) g/dL RDW 14.1 (11.5-15.5) % Plt Count 144 L (150-450) k/uL Neutrophils % 68 % Lymphocytes % 10 % Monocytes % 14 % Eosinophils % 4 % Basophils % 1 % Neutrophils # 4.2 (1.3-7.7) k/uL Lymphocytes # 0.6 L (1.0-4.8) k/uL Monocytes # 0.9 (0-1.0) k/uL Eosinophils # 0.2 (0-0.7) k/uL Basophils # 0.0 (0-0.2) k/uL Hypochromasia Slight Macrocytosis Slight Sodium 138 (137-145) mmol/L Potassium 5.7 H (3.5-5.1) mmol/L Chloride 105 (98-107) mmol/L Carbon Dioxide 25 (22-30) mmol/L Anion Gap 8 mmol/L BUN 22 H (9-20) mg/dL Creatinine 0.74 (0.66-1.25) mg/dL Est GFR (CKD-EPI)AfAm >90 (>60 ml/min/1.73 sqM) Est GFR (CKD-EPI)NonAf 83 (>60 ml/min/1.73 sqM) Glucose 102 H (74-99) mg/dL Calcium 9.3 (8.4-10.2) mg/dL Magnesium 2.0 (1.6-2.3) mg/dL Total Bilirubin 1.9 H (0.2-1.3) mg/dL AST 48 (17-59) U/L ALT 11 L (21-72) U/L Alkaline Phosphatase 34 L (38-126) U/L Total Creatine Kinase 57 (55-170) U/L Total Protein 7.9 (6.3-8.2) g/dL Albumin 4.3 (3.5-5.0) g/dL Influenza Type A RNA (Not Detectd) Influenza Type B (PCR) (Not Detectd) 12/06/18 Range/Units 16:03 WBC (3.8-10.6) k/uL RBC (4.30-5.90) m/uL Hgb (13.0-17.5) gm/dL Hct (39.0-53.0) % MCV (80.0-100.0) fL MCH (25.0-35.0) pg MCHC (31.0-37.0) g/dL RDW (11.5-15.5) % Plt Count (150-450) k/uL Neutrophils % % Lymphocytes % % Monocytes % % Eosinophils % % Basophils % % Neutrophils # (1.3-7.7) k/uL Lymphocytes # (1.0-4.8) k/uL Monocytes # (0-1.0) k/uL Eosinophils # (0-0.7) k/uL Basophils # (0-0.2) k/uL Hypochromasia Macrocytosis Sodium (137-145) mmol/L Potassium (3.5-5.1) mmol/L Chloride (98-107) mmol/L Carbon Dioxide (22-30) mmol/L Anion Gap mmol/L BUN (9-20) mg/dL Creatinine (0.66-1.25) mg/dL Est GFR (CKD-EPI)AfAm (>60 ml/min/1.73 sqM) Est GFR (CKD-EPI)NonAf (>60 ml/min/1.73 sqM) Glucose (74-99) mg/dL Calcium (8.4-10.2) mg/dL Magnesium (1.6-2.3) mg/dL Total Bilirubin (0.2-1.3) mg/dL AST (17-59) U/L ALT (21-72) U/L Alkaline Phosphatase (38-126) U/L Total Creatine Kinase (55-170) U/L Total Protein (6.3-8.2) g/dL Albumin (3.5-5.0) g/dL Influenza Type A RNA Not Detected (Not Detectd) Influenza Type B (PCR) Not Detected (Not Detectd) - Radiology Data Radiology results: report reviewed (Imaging revealed no acute findings), image reviewed Disposition Clinical Impression: Orthostatic hypotension, Dehydration, Pacemaker Disposition: HOME SELF-CARE Condition: Good Instructions (If sedation given, give patient instructions): Dizziness (ED), Dehydration (ED) Is patient prescribed a controlled substance at d/c from ED?: No Referrals: Nolan Larson DO [Primary Care Provider] - 1-2 days
[2018-12-06 16:09] LABS: Basophils % (A) 1 %; Eosinophils # (A) 0.2 k/uL (0-0.7); Eosinophils % (A) 4 %; HCT 45.7 % (39.0-53.0); HGB 14.5 gm/dL (13.0-17.5); Hypochromasia Slight; Lymphocytes # (A) 0.6 k/uL (1.0-4.8); Lymphocytes % (A) 10 %; MCH 32.1 pg (25.0-35.0); MCHC 31.7 g/dL (31.0-37.0); MCV 101.5 fL (80.0-100.0); Macrocytosis Slight; Monocytes # (A) 0.9 k/uL (0-1.0); Monocytes % (A) 14 %; Neutrophils # (A) 4.2 k/uL (1.3-7.7); Neutrophils % (A) 68 %; Platelet Count 144 k/uL (150-450); RDW 14.1 % (11.5-15.5); WBC 6.1 k/uL (3.8-10.6)
[2018-12-06 16:20] LABS: ALT 11 U/L (21-72); AST 48 U/L (17-59); Albumin 4.3 g/dL (3.5-5.0); Alkaline Phosphatase 34 U/L (38-126); Anion Gap 8 mmol/L; Blood Urea Nitrogen 22 mg/dL (9-20); Calcium 9.3 mg/dL (8.4-10.2); Carbon Dioxide 25 mmol/L (22-30); Chloride 105 mmol/L (98-107); Glucose 102 mg/dL (74-99); Potassium 5.7 mmol/L (3.5-5.1); Sodium 138 mmol/L (137-145); Total Bilirubin 1.9 mg/dL (0.2-1.3); Total Protein 7.9 g/dL (6.3-8.2)
[2018-12-06 16:34] LABS: Creatine Kinase MB 0.9 ng/mL (0.0-2.4); Troponin I 0.012 ng/mL (0.000-0.034)
[2018-12-06 16:52] LABS: Appearance,Urine Clear (Clear); Bilirubin,Urine Negative (Negative); Blood,Urine Negative (Negative); Color,Urine Yellow; Glucose,Urine (UA) Negative (Negative); Ketones,Urine Negative (Negative); Leukocyte Esterase,Urine Negative (Negative); Nitrite,Urine Negative (Negative); Protein,Urine Negative (Negative); Specific Gravity,Urine 1.019 (1.001-1.035); Urobilinogen,Urine <2.0 mg/dL (<2.0)
[2018-12-06 17:33] VITALS: BP 174/98; PULSE 55; RESP 16; TEMP 98.2
== END 2018-12-06 17:35 | disposition home or self-care (01) ==
LOC: EC 15:04
DX: E86.0 Dehydration (principal); I95.1 Orthostatic hypotension; I48.91 Unspecified atrial fibrillation; I10 Essential (primary) hypertension; M19.90 Unspecified osteoarthritis, unspecified site; Z87.891 Personal history of nicotine dependence; Z95.0 Presence of cardiac pacemaker; Z79.82 Long term (current) use of aspirin; Z79.899 Other long term (current) drug therapy; Z88.6 Allergy status to analgesic agent; Z95.818 Presence of other cardiac implants and grafts
CPT/HCPCS: 36415; 80053; 81003; 82550; 82553; 83735; 84484; 85025; 87502; 93005; 96360; 99284

== ENCOUNTER 2019-05-12 19:07 | Inpatient (IN) | payer MEDICARE, BC ==
--- NOTE | 2019-05-12 19:23 | ED ---
GI Bleed HPI - General Chief complaint: GI Bleed Stated complaint: GI Bleed Time Seen by Provider: 05/12/19 19:14 Source: patient, EMS, RN notes reviewed, old records reviewed Mode of arrival: EMS Limitations: no limitations - History of Present Illness Initial comments: This is a 88-year-old male poor historian and dementia coming in for evaluation regarding significant GI bleed and weakness. Patient had 2 bloody bowel movements as of late. Patient having persistent weakness currently. Does not feel well. Patient denies history of blood thinners. Denies feelings of syncope or near-syncope. No pain. Patient also has persistent hiccups she c annot control currently MD complaint: melena, blood streaked stool -: hour(s) Radiation: none Severity scale (1-10): 7 Consistency: constant Improves with: none Worsens with: bowel movement Associated Symptoms: weakness, other (Hiccups) Treatments Prior to Arrival: none - Related Data Home Medications Medication Instructions Recorded Confirmed Dorzolamide/Timolol/Pf [Cosopt Pf 1 drop BOTH EYES BID 08/14/17 05/12/19 2%/5% Ophth Droperette] Latanoprost Ophth [Xalatan 0.005%] 1 drops RIGHT EYE HS 08/14/17 05/12/19 Aspirin EC [Ecotrin Low Dose] 81 mg PO Q48H 12/06/18 05/12/19 hydrALAZINE HCL [Apresoline] 25 mg PO BID 12/06/18 05/12/19 Allergies Allergy/AdvReac Type Severity Reaction Status Date / Time aspirin AdvReac Abdominal Verified 05/12/19 20:10 Pain AND BLEEDING Review of Systems ROS Statement: Those systems with pertinent positive or pertinent negative responses have been documented in the HPI. ROS Other: All systems not noted in ROS Statement are negative. Past Medical History Past Medical History: Atrial Fibrillation, Hypertension, Osteoarthritis (OA) Additional Past Medical History / Comment(s): brain bleed History of Any Multi-Drug Resistant Organisms: None Reported Past Surgical History: Heart Catheterization Additional Past Surgical History / Comment(s): ANGIOGRAM OF THE NECK, Catatracts.States he had carotid artery surgery. Past Anesthesia/Blood Transfusion Reactions: No Reported Reaction Past Psychological History: No Psychological Hx Reported Smoking Status: Former smoker Past Alcohol Use History: Daily Past Drug Use History: None Reported - Past Family History Mother Family Medical History: No Reported History General Exam Limitations: no limitations General appearance: alert, in no apparent distress Head exam: Present: atraumatic, normocephalic, normal inspection Eye exam: Present: normal appearance, PERRL, EOMI. Absent: scleral icterus, conjunctival injection, periorbital swelling ENT exam: Present: normal exam, mucous membranes moist Neck exam: Present: normal inspection. Absent: tenderness, meningismus, lymphadenopathy Respiratory exam: Present: normal lung sounds bilaterally. Absent: respiratory distress, wheezes, rales, rhonchi, stridor Cardiovascular Exam: Present: regular rate, normal rhythm, normal heart sounds. Absent: systolic murmur, diastolic murmur, rubs, gallop, clicks GI/Abdominal exam: Present: soft, normal bowel sounds. Absent: distended, tenderness, guarding, rebound, rigid Extremities exam: Present: normal inspection, full ROM, normal capillary refill. Absent: tenderness, pedal edema, joint swelling, calf tenderness Back exam: Present: normal inspection Neurological exam: Present: alert, oriented X3, CN II-XII intact Psychiatric exam: Present: normal affect, normal mood Skin exam: Present: warm, dry, intact, normal color. Absent: rash Course Vital Signs 05/12/19 05/12/19 05/12/19 19:18 19:20 21:43 Temperature 98 F Pulse Rate 99 60 60 Respiratory 20 18 18 Rate Blood Pressure 122/67 130/69 111/50 O2 Sat by Pulse 99 98 98 Oximetry - Reevaluation(s) Reevaluation #1: 05/12/19 21:56 Medical record Reevaluation #2: 05/12/19 21:56 checkups and symptoms are overall improved Reevaluation #3: 05/12/19 21:57 Will admit for GI evaluation - Consultations Consultation #1: spoke w Dr ana laura walker for admossion Medical Decision Making - Medical Decision Making 7 male the ER with persistent GI bleed, hemoglobin 2.5 since last known. Vital signs are currently normal and stable, patient will admit, transfuse - Lab Data Result diagrams: 05/12/19 19:26 05/12/19 19:26 Lab Results 05/12/19 05/12/19 05/12/19 Range/Units 19:26 19:26 19:26 WBC 10.4 (3.8-10.6) k/uL RBC 2.38 L (4.30-5.90) m/uL Hgb 8.1 L (13.0-17.5) gm/dL Hct 23.4 L (39.0-53.0) % MCV 98.3 (80.0-100.0) fL MCH 34.1 (25.0-35.0) pg MCHC 34.7 (31.0-37.0) g/dL RDW 15.5 (11.5-15.5) % Plt Count 154 (150-450) k/uL Neutrophils % 85 % Lymphocytes % 6 % Monocytes % 7 % Eosinophils % 1 % Basophils % 0 % Neutrophils # 8.8 H (1.3-7.7) k/uL Lymphocytes # 0.6 L (1.0-4.8) k/uL Monocytes # 0.7 (0-1.0) k/uL Eosinophils # 0.1 (0-0.7) k/uL Basophils # 0.0 (0-0.2) k/uL Macrocytosis Slight PT 11.6 (9.0-12.0) sec INR 1.1 (<1.2) APTT 19.2 L (22.0-30.0) sec Sodium 134 L (137-145) mmol/L Potassium 3.8 (3.5-5.1) mmol/L Chloride 101 (98-107) mmol/L Carbon Dioxide 25 (22-30) mmol/L Anion Gap 8 mmol/L BUN 23 H (9-20) mg/dL Creatinine 0.79 (0.66-1.25) mg/dL Est GFR (CKD-EPI)AfAm >90 (>60 ml/min/1.73 sqM) Est GFR (CKD-EPI)NonAf 81 (>60 ml/min/1.73 sqM) Glucose 136 H (74-99) mg/dL Calcium 8.2 L (8.4-10.2) mg/dL Magnesium 2.1 (1.6-2.3) mg/dL Total Bilirubin 0.7 (0.2-1.3) mg/dL AST 17 (17-59) U/L ALT 15 L (21-72) U/L Alkaline Phosphatase 28 L (38-126) U/L Troponin I (0.000-0.034) ng/mL Total Protein 5.5 L (6.3-8.2) g/dL Albumin 2.8 L (3.5-5.0) g/dL Lipase 69 (23-300) U/L Blood Type Blood Type Recheck Bld Type Recheck Status Antibody Screen Spec Expiration Date 05/12/19 05/12/19 Range/Units 19:26 19:26 WBC (3.8-10.6) k/uL RBC (4.30-5.90) m/uL Hgb (13.0-17.5) gm/dL Hct (39.0-53.0) % MCV (80.0-100.0) fL MCH (25.0-35.0) pg MCHC (31.0-37.0) g/dL RDW (11.5-15.5) % Plt Count (150-450) k/uL Neutrophils % % Lymphocytes % % Monocytes % % Eosinophils % % Basophils % % Neutrophils # (1.3-7.7) k/uL Lymphocytes # (1.0-4.8) k/uL Monocytes # (0-1.0) k/uL Eosinophils # (0-0.7) k/uL Basophils # (0-0.2) k/uL Macrocytosis PT (9.0-12.0) sec INR (<1.2) APTT (22.0-30.0) sec Sodium (137-145) mmol/L Potassium (3.5-5.1) mmol/L Chloride (98-107) mmol/L Carbon Dioxide (22-30) mmol/L Anion Gap mmol/L BUN (9-20) mg/dL Creatinine (0.66-1.25) mg/dL Est GFR (CKD-EPI)AfAm (>60 ml/min/1.73 sqM) Est GFR (CKD-EPI)NonAf (>60 ml/min/1.73 sqM) Glucose (74-99) mg/dL Calcium (8.4-10.2) mg/dL Magnesium (1.6-2.3) mg/dL Total Bilirubin (0.2-1.3) mg/dL AST (17-59) U/L ALT (21-72) U/L Alkaline Phosphatase (38-126) U/L Troponin I <0.012 (0.000-0.034) ng/mL Total Protein (6.3-8.2) g/dL Albumin (3.5-5.0) g/dL Lipase (23-300) U/L Blood Type A Positive Blood Type Recheck A Pos Bld Type Recheck Status No Antibody Screen NEGATIVE Spec Expiration Date 05/15/2019 2133 - EKG Data -: EKG Interpreted by Me (EKG shows Paced rhythm rate 60 QRS 112 QTc 432) Disposition Clinical Impression: GIB (gastrointestinal bleeding), Anemia Disposition: ADMITTED IP TO THIS HOSP Condition: Fair Instructions (If sedation given, give patient instructions): Gastrointestinal Bleeding (ED) Is patient prescribed a controlled substance at d/c from ED?: No Referrals: Nolan Larson DO [Primary Care Provider] - 1-2 days
[2019-05-12] MEDS ORDERED: chlorproMAZINE 25 MG/ML 2 ML AMP IM STA (19:37)
[2019-05-12] MEDS ORDERED: PANTOPRAZOLE 40 MG/10 ML VIAL IVP STA (19:37)
[2019-05-12] MEDS ORDERED: ONDANSETRON 4 MG/2 ML VIAL IVP STA (19:37)
[2019-05-12] MEDS ORDERED: SODIUM CHLORIDE 0.9% 1,000 ML IV STA (19:37)
[2019-05-12 20:18] LABS: ALT 15 U/L (21-72); AST 17 U/L (17-59); African American GFR (CKD) >90 (>60 ml/min/1.73 sqM); Albumin 2.8 g/dL (3.5-5.0); Alkaline Phosphatase 28 U/L (38-126); Anion Gap 8 mmol/L; Blood Urea Nitrogen 23 mg/dL (9-20); Calcium 8.2 mg/dL (8.4-10.2); Carbon Dioxide 25 mmol/L (22-30); Chloride 101 mmol/L (98-107); Glucose 136 mg/dL (74-99); Magnesium 2.1 mg/dL (1.6-2.3); Non-African American GFR(CKD) 81 (>60 ml/min/1.73 sqM); Potassium 3.8 mmol/L (3.5-5.1); Sodium 134 mmol/L (137-145); Total Bilirubin 0.7 mg/dL (0.2-1.3); Total Protein 5.5 g/dL (6.3-8.2)
[2019-05-12 20:21] LABS: Basophils % (A) 0 %; Eosinophils # (A) 0.1 k/uL (0-0.7); Eosinophils % (A) 1 %; HCT 23.4 % (39.0-53.0); HGB 8.1 gm/dL (13.0-17.5); Lymphocytes # (A) 0.6 k/uL (1.0-4.8); Lymphocytes % (A) 6 %; MCH 34.1 pg (25.0-35.0); MCHC 34.7 g/dL (31.0-37.0); MCV 98.3 fL (80.0-100.0); Macrocytosis Slight; Mean Platelet Volume 8.2; Monocytes # (A) 0.7 k/uL (0-1.0); Monocytes % (A) 7 %; Neutrophils # (A) 8.8 k/uL (1.3-7.7); Neutrophils % (A) 85 %; Platelet Count 154 k/uL (150-450); RBC 2.38 m/uL (4.30-5.90); RDW 15.5 % (11.5-15.5); WBC 10.4 k/uL (3.8-10.6)
[2019-05-12 20:23] LABS: INR 1.1 (<1.2); Prothrombin Time 11.6 sec (9.0-12.0)
[2019-05-12 20:25] LABS: Partial Thromboplastin Time 19.2 sec (22.0-30.0)
[2019-05-12 23:06] VITALS: BMI 26.5
[2019-05-13] MEDS: SODIUM CHLORIDE 0.9% 1,000 ML IV SCH ×2 (03:48→16:03)
[2019-05-13 06:24] LABS: Basophils % (A) 0 %; Eosinophils # (A) 0.1 k/uL (0-0.7); Eosinophils % (A) 2 %; HCT 24.2 % (39.0-53.0); HGB 7.5 gm/dL (13.0-17.5); Hypochromasia Slight; Lymphocytes # (A) 0.7 k/uL (1.0-4.8); Lymphocytes % (A) 9 %; MCH 30.7 pg (25.0-35.0); MCV 98.9 fL (80.0-100.0); Macrocytosis Slight; Mean Platelet Volume 8.3; Monocytes # (A) 0.6 k/uL (0-1.0); Monocytes % (A) 8 %; Neutrophils # (A) 5.9 k/uL (1.3-7.7); Neutrophils % (A) 79 %; Platelet Count 126 k/uL (150-450); RBC 2.44 m/uL (4.30-5.90); RDW 15.5 % (11.5-15.5); WBC 7.4 k/uL (3.8-10.6)
[2019-05-13 06:43] LABS: African American GFR (CKD) >90 (>60 ml/min/1.73 sqM); Anion Gap 5 mmol/L; Blood Urea Nitrogen 21 mg/dL (9-20); Calcium 7.8 mg/dL (8.4-10.2); Carbon Dioxide 25 mmol/L (22-30); Chloride 106 mmol/L (98-107); Glucose 103 mg/dL (74-99); Non-African American GFR(CKD) 85 (>60 ml/min/1.73 sqM); Potassium 3.5 mmol/L (3.5-5.1); Sodium 136 mmol/L (137-145)
[2019-05-13] MEDS: DORZOLAMIDE-TIMOLOL 2.23%/0.68 10ML BTL BOTH EYES SCH ×2 (08:23→20:04)
[2019-05-13] MEDS ORDERED: PANTOPRAZOLE 40 MG/10 ML VIAL IVP SCH (12:00)
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
[2019-05-13] MEDS: LATANOPROST 0.005% OPHTH DROPS 2.5 ML BTL RIGHT EYE SCH (20:03)
[2019-05-13] MEDS: PANTOPRAZOLE 40 MG/10 ML VIAL IVP SCH (22:14)
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
[2019-05-14 06:15] LABS: Basophils % (A) 0 %; Eosinophils # (A) 0.2 k/uL (0-0.7); Eosinophils % (A) 2 %; HGB 7.3 gm/dL (13.0-17.5); Hypochromasia Slight; Lymphocytes # (A) 0.9 k/uL (1.0-4.8); Lymphocytes % (A) 10 %; MCH 30.4 pg (25.0-35.0); MCHC 30.5 g/dL (31.0-37.0); MCV 99.6 fL (80.0-100.0); Macrocytosis Slight; Mean Platelet Volume 7.9; Monocytes # (A) 0.8 k/uL (0-1.0); Monocytes % (A) 9 %; Neutrophils # (A) 7.3 k/uL (1.3-7.7); Neutrophils % (A) 78 %; Platelet Count 147 k/uL (150-450); Poikilocytosis Slight; RBC 2.41 m/uL (4.30-5.90); RDW 15.5 % (11.5-15.5); WBC 9.4 k/uL (3.8-10.6)
[2019-05-14 06:29] LABS: Calcium 8.1 mg/dL (8.4-10.2); Potassium 4.1 mmol/L (3.5-5.1)
[2019-05-14] MEDS: PANTOPRAZOLE 40 MG/10 ML VIAL IVP SCH ×2 (08:13→20:44)
[2019-05-14] MEDS: THIAMINE 100 MG TAB PO SCH (08:14)
[2019-05-14] MEDS: DORZOLAMIDE-TIMOLOL 2.23%/0.68 10ML BTL BOTH EYES SCH ×2 (08:14→20:44)
[2019-05-14] MEDS: MULTIVITAMINS, THERA 1 EACH TAB PO SCH (08:14)
[2019-05-14] MEDS ORDERED: PROPOFOL 10 MG/ML 20 ML VIAL IV ONE (09:29)
[2019-05-14] MEDS ORDERED: LIDOCAINE 1% INJ 10MG/ML (20 ML MDV) ONE (09:29)
[2019-05-14] MEDS ORDERED: IV FLUID CONTINUATION 1,000 ML IV ONE (09:34)
--- NOTE | 2019-05-14 10:04 | P.PCN ---
Date of Procedure: 05/14/19 Description of Procedure: BRIEF HISTORY: 88-year-old male with a known history of atrial fibrillation currently on aspirin, sick sinus syndrome status post pacemaker placement, hypertension, and osteoarthritis who came into the hospital due to intractable cups and upper abdominal discomfort. He had also reported dark colored stool as well as dizziness and losing his balance. The patient was found to be anemic on admission with a hemoglobin of 8.1 which subsequently fell to 7.5 and is being taken for EGD for further investigation PROCEDURE PERFORMED: Esophagogastroduodenoscopy with biopsy. PREOPERATIVE DIAGNOSIS: Melena, anemia of acute blood loss. ESTIMATED BLOOD LOSS: Minimal. IV sedation per anesthesia. PROCEDURE: After informed consent was obtained, the patient was brought into the endoscopy unit. IV sedation was administered by Anesthesia under continuous monitoring. Initially the Olympus GIF-190 video endoscope was inserted into the mouth. Esophagus intubated without any difficulty. It was gradually advanced into the stomach and duodenum and carefully examined. The bulb and the second part of the duodenum appeared normal, with biopsies taken. The scope at this time was withdrawn to the stomach, adequately insufflated with air, and upon careful exa mination, of the mucosa of the antrum, body, cardia and the fundus a 1.5 cm cratered nonbleeding antral ulcer without high-risk stigmata for bleeding was noted and biopsied. 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 Biopsies of the antrum and body also taken. The scope was then withdrawn into the esophagus. The GE junction was located at 44 cm from the incisors with a 2 cm hiatal hernia noted. The esophagus appeared normal, with a widely patent Schatzki's ring in the distal esophagus. There were no erosions or ulcerations seen and the patient tolerated the procedure well. IMPRESSION: 1. Nonbleeding cratered antral ulcer without high-risk stigmata for bleeding, biopsied. 2. 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 3. Widely patent distal esophageal Schatzki's ring. 4. Biopsies of the antrum and body, and the duodenum. RECOMMENDATIONS: The findings of this examination were discussed with the patient in the nursing staff. Okay to resume full liquid diet. Patient should be on twice daily PPI therapy with Protonix twice daily. Await pathology from biopsies.
[2019-05-14] MEDS: LATANOPROST 0.005% OPHTH DROPS 2.5 ML BTL RIGHT EYE SCH (20:44)
[2019-05-15] MEDS: PANTOPRAZOLE 40 MG/10 ML VIAL IVP SCH ×2 (07:50→21:05)
[2019-05-15] MEDS: DORZOLAMIDE-TIMOLOL 2.23%/0.68 10ML BTL BOTH EYES SCH ×2 (07:50→21:08)
[2019-05-15] MEDS: THIAMINE 100 MG TAB PO SCH (07:50)
[2019-05-15] MEDS: MULTIVITAMINS, THERA 1 EACH TAB PO SCH (07:50)
[2019-05-15 08:37] LABS: Basophils % (A) 0 %; Eosinophils # (A) 0.2 k/uL (0-0.7); Eosinophils % (A) 2 %; HCT 24.2 % (39.0-53.0); HGB 7.4 gm/dL (13.0-17.5); Hypochromasia Moderate; Lymphocytes # (A) 0.6 k/uL (1.0-4.8); Lymphocytes % (A) 7 %; MCH 30.6 pg (25.0-35.0); MCHC 30.4 g/dL (31.0-37.0); MCV 100.7 fL (80.0-100.0); Macrocytosis Slight; Mean Platelet Volume 8.1; Monocytes # (A) 0.7 k/uL (0-1.0); Monocytes % (A) 8 %; Neutrophils # (A) 7.4 k/uL (1.3-7.7); Neutrophils % (A) 81 %; Platelet Count 173 k/uL (150-450); Poikilocytosis Slight; RDW 15.2 % (11.5-15.5); WBC 9.1 k/uL (3.8-10.6)
[2019-05-15 08:38] LABS: African American GFR (CKD) >90 (>60 ml/min/1.73 sqM); Anion Gap 5 mmol/L; Blood Urea Nitrogen 19 mg/dL (9-20); Calcium 7.9 mg/dL (8.4-10.2); Carbon Dioxide 27 mmol/L (22-30); Chloride 104 mmol/L (98-107); Glucose 103 mg/dL (74-99); Non-African American GFR(CKD) 81 (>60 ml/min/1.73 sqM); Potassium 4.2 mmol/L (3.5-5.1); Sodium 136 mmol/L (137-145)
--- NOTE | 2019-05-15 17:05 | PN ---
PROGRESS NOTE DATE OF DICTATION: May 15, 2019 Patient is an 88-year-old pleasant white male admitted to the hospital with black tarry stools of 2 days duration. He was noted to have a hemoglobin of 8.1, which dropped slowly to 7.5. He received 1 unit of blood transfusion so far. He underwent an upper endoscopy by Dr. Mosley yesterday which showed a 1.5 cm antral ulcer with no active bleeding. Biopsies were done, which is still pending at the time of this dictation. Presently, he is doing well. He reports no abdominal pain. No further episodes of bleeding. PHYSICAL EXAMINATION: Appears comfortable, no apparent distress. Vital signs stable. Blood pressure 139/61, pulse rate 62, temperature 97.5. HEENT examination unremarkable. Conjunctivae pink. Sclerae anicteric. Oral cavity no lesions. Neck no JVD or lymph node enlargement. Chest was clear to auscultation. HEART: Regular rate and rhythm. ABDOMEN: Soft. Bowel sounds are positive. No organomegaly. EXTREMITIES: No pedal edema. Skin no rashes. NEUROLOGIC: Alert and oriented x3. No focal deficits. LABS: WBC 9.1, hemoglobin 7.4, platelets are 173. BUN 19, creatinine 0.78. IMPRESSION: 1. Acute upper gastrointestinal bleed secondary to antral ulcer, status post EGD yesterday that showed a 1.5 cm antral ulcer with no stigmata of recent bleed. The patient on IV Protonix 40 mg twice daily. Hemoglobin stable at 7.3 g/dL. 2. History of atrial fibrillation, on aspirin. 3. History of cerebral bleed a year ago. RECOMMENDATIONS: 1. Continue with Protonix 40 mg q.12 hours. 2. Advance diet as tolerated. 3. CBC in the morning. 4. We will follow with you closely. Thank you for this consultation. MMODL / IJN: [id number] /
[2019-05-15] MEDS ORDERED: SENNOSIDES-DOCUSATE SODIUM 1 EACH TAB PO SCH (21:00)
[2019-05-15] MEDS: LATANOPROST 0.005% OPHTH DROPS 2.5 ML BTL RIGHT EYE SCH (21:09)
--- NOTE | 2019-05-15 23:16 | P.PN ---
Progress Note - Text Progress Note Date: 05/15/19 Interval history: Admitted with dark stools. EGD done on May [address] 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 Put on PPIs and a full liquid diet. Today-no further evidence of GI bleed. Had been a liquid diet. Diet is being advanced. Review of systems: Was done for constitutional, cardiovascular, GI, pulmonary. relevant finding as above Active Medications Dorzolamide/Timolol (Cosopt) 1 drops BOTH EYES BID [facility] Last Admin: 05/15/19 21:08 Dose: 1 drops Documented by: Latanoprost (Xalatan 0.005%) 1 drops RIGHT EYE HS [facility] Last Admin: 05/15/19 21:09 Dose: 1 drops Documented by: Multivitamins (Theragran) 1 each PO DAILY [facility] Last Admin: 05/15/19 07:50 Dose: 1 each Documented by: Pantoprazole Sodium (Protonix) 40 mg IVP BID [facility] Last Admin: 05/15/19 21:05 Dose: 40 mg Documented by: Senna/Docusate Sodium (Senokot-S) 1 each PO HS [facility] Last Admin: 05/15/19 21:04 Dose: 1 each Documented by: Thiamine HCl (Vitamin B-1) 100 mg PO DAILY [facility] Last Admin: 05/15/19 07:50 Dose: 100 mg Documented by: Physical examination: VITAL SIGNS: 97.5, 62, 20, 139/61, 100% room air GENERAL: Average built, laying in bed, comfortable. EYES: Pupils equal. Conjunctiva normal. HEENT: External appearance of nose and ears normal, oral cavity grossly normal. NECK: JVD not raised; masses not palpable. HEART: First and second heart sounds are normal; no edema. LUNGS: Respiratory rate normal; clear to auscultation. ABDOMEN: Soft, nontender, liver spleen not palpable, no masses palpable. PSYCH: Alert and oriented x3; mood and affect normal. INVESTIGATIONS, reviewed in the clinical context:. Hemoglobin 7.4 creatinine 0.78 Assessment: -Acute GI bleed from gastric ulcer -Acute blood loss anemia from GI bleed -Schatzki's ring -Essential hypertension -Primary osteoarthritis -Pacemaker with history of atrial fibrillation Disposition plan: ECF Plan: Continue current medication treatment plan. Diet is being advanced. Patient is on a PPI. If hemoglobin remains stable t discharge tomorrow.
[2019-05-16 01:19] LABS: Basophils % (A) 0 %; Eosinophils # (A) 0.3 k/uL (0-0.7); Eosinophils % (A) 3 %; HGB 7.4 gm/dL (13.0-17.5); Hypochromasia Moderate; Lymphocytes # (A) 0.9 k/uL (1.0-4.8); Lymphocytes % (A) 9 %; MCH 30.9 pg (25.0-35.0); MCV 96.5 fL (80.0-100.0); Mean Platelet Volume 7.2; Monocytes # (A) 0.7 k/uL (0-1.0); Monocytes % (A) 7 %; Neutrophils # (A) 7.8 k/uL (1.3-7.7); Neutrophils % (A) 79 %; Platelet Count 199 k/uL (150-450); Poikilocytosis Slight; RBC 2.38 m/uL (4.30-5.90); RDW 14.8 % (11.5-15.5); WBC 9.9 k/uL (3.8-10.6)
[2019-05-16 01:37] VITALS: PULSE 60
[2019-05-16 05:01] VITALS: RESP 18
[2019-05-16] MEDS ORDERED: PANTOPRAZOLE 40 MG TABLET PO SCH (07:30)
[2019-05-16] MEDS: DORZOLAMIDE-TIMOLOL 2.23%/0.68 10ML BTL BOTH EYES SCH (09:01)
[2019-05-16] MEDS: MULTIVITAMINS, THERA 1 EACH TAB PO SCH (09:01)
[2019-05-16] MEDS: THIAMINE 100 MG TAB PO SCH (09:02)
[2019-05-16 09:28] LABS: HCT 25.8 % (39.0-53.0); Hypochromasia Moderate; MCH 30.8 pg (25.0-35.0); MCHC 30.9 g/dL (31.0-37.0); MCV 99.5 fL (80.0-100.0); Macrocytosis Slight; Mean Platelet Volume 8.1; Platelet Count 240 k/uL (150-450); Poikilocytosis Slight; WBC 10.9 k/uL (3.8-10.6)
[2019-05-16 12:04] VITALS: BP 119/68; TEMP 98.1
--- NOTE | 2019-05-16 12:51 | P.DS ---
Providers Date of admission: 05/13/19 09:44 Expected date of discharge: 05/16/19 Attending physician: Chetan Gill Consults: 05/12/19 21:54 Consult Physician Routine Consulting Provider: Jose Miguel Mosley Reason/Comments: gib Do you want consulting provider notified?: Yes Primary care physician: [facility] Course: Hospital course: Admitted with dark stools. EGD done on May [address] 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 Put on PPIs and a full liquid diet. Today-no evidence of bleeding. Has been tolerating his diet. Has been up in the hallway. Care was discussed with the patient insisted the bedside. Patient will be going to the rehab. Patient will follow up with GI in the office. Consultation: Dr. Chang at all from gastroenterology Physical examination: VITAL SIGNS: 98.1, 60, 18, 11 9/68, 99% room air GENERAL: Average built, laying in bed, comfortable. EYES: Pupils equal. Conjunctiva normal. HEENT: External appearance of nose and ears normal, oral cavity grossly normal. NECK: JVD not raised; masses not palpable. HEART: First and second heart sounds are normal; no edema. LUNGS: Respiratory rate normal; clear to auscultation. ABDOMEN: Soft, nontender, liver spleen not palpable, no masses palpable. PSYCH: Alert and oriented x3; mood and affect normal. INVESTIGATIONS, reviewed in the clinical context:. 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 ulcer, gastro-duodenal fistula -Acute blood loss anemia from GI bleed -Schatzki's ring, distal esophageal -Essential hypertension -Primary osteoarthritis -Pacemaker with history of atrial fibrillation Disposition plan: ECF/[facility] Patient Condition at Discharge: Fair Plan - Discharge Summary New Discharge Prescriptions: New Multivitamins, Thera [Multivitamin (formulary)] 1 each PO DAILY tab Pantoprazole [Protonix] 40 mg PO AC-BID tablet.dr Crowder-Docusate Sodium [Senokot-S] 1 each PO HS tab Continue Dorzolamide/Timolol/Pf [Cosopt Pf 2%/5% Ophth Droperette] 1 drop BOTH EYES BID Latanoprost Ophth [Xalatan 0.005%] 1 drops RIGHT EYE HS Discontinued hydrALAZINE HCL [Apresoline] 25 mg PO BID Aspirin EC [Ecotrin Low Dose] 81 mg PO Q48H Discharge Medication List Dorzolamide/Timolol/Pf [Cosopt Pf 2%/5% Ophth Droperette] 1 drop BOTH EYES BID 08/14/17 [History] Latanoprost Ophth [Xalatan 0.005%] 1 drops RIGHT EYE HS 08/14/17 [History] Multivitamins, Thera [Multivitamin (formulary)] 1 each PO DAILY tab 05/16/19 [Rx] Pantoprazole [Protonix] 40 mg PO AC-BID tablet. 05/16/19 [Rx] Sennosides-Docusate Sodium [Senokot-S] 1 each PO HS tab 05/16/19 [Rx] Follow up Appointment(s)/Referral(s): Nolan Larson DO [Primary Care Provider] - 05/17/19 Heidi Patel MD [STAFF PHYSICIAN] - 1 Week Patient Instructions/Handouts: Gastrointestinal Bleeding (ED)
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
== END 2019-05-16 14:53 | DRG 378 ==
LOC: EC 19:07 → 3SCARD 21:54 → OBSVTOIN 05-13 09:44 → 3NMEDONC 05-14 19:37
PROVIDERS: ADMIT Hospitalist; ATTEND Hospitalist
PROC: 30233N1 Transfusion of Nonautologous Red Blood Cells into Peripheral Vein, Percutaneous Approach (ICD-10-PCS; 2019-05-12)
PROC: 0DB78ZX Excision of Stomach, Pylorus, Via Natural or Artificial Opening Endoscopic, Diagnostic (ICD-10-PCS; 2019-05-14)
PROC: 0DB68ZX Excision of Stomach, Via Natural or Artificial Opening Endoscopic, Diagnostic (ICD-10-PCS; principal; 2019-05-14 07:30)
DX: K25.4 Chronic or unspecified gastric ulcer with hemorrhage (principal); D62 Acute posthemorrhagic anemia; K31.6 Fistula of stomach and duodenum; I48.0 Paroxysmal atrial fibrillation; K22.2 Esophageal obstruction; F03.90 Unspecified dementia, unspecified severity, without behavioral disturbance, psychotic disturbance, mood disturbance, and anxiety; I10 Essential (primary) hypertension; K44.9 Diaphragmatic hernia without obstruction or gangrene; M19.91 Primary osteoarthritis, unspecified site; R06.6 Hiccough; Z72.89 Other problems related to lifestyle; Z79.82 Long term (current) use of aspirin; Z79.899 Other long term (current) drug therapy; Z87.891 Personal history of nicotine dependence; Z95.0 Presence of cardiac pacemaker; Z88.6 Allergy status to analgesic agent; Z87.11 Personal history of peptic ulcer disease; Z87.820 Personal history of traumatic brain injury
CPT/HCPCS: 36415; 43239; 80048; 80053; 83690; 83735; 84484; 85025; 85027; 85610; 85730; 86850; 86900; 86901; 86920; 88305; 88342; 93005; 96361; 96372; 96374; 96375; 99285

== ENCOUNTER → 2021-01-22 | Outpatient (CLI) | payer MEDICARE, BC ==
--- NOTE | 2021-01-23 08:57 | CT ---
EXAMINATION TYPE: CT brain wo con DATE OF EXAM: 01/22/2021 COMPARISON: 06/25/2018 HISTORY: headaches and dizziness CT DLP: 1090.[address] of the brain was performed. The ventricles, basal cisterns and sulci overlying the cerebral convexities demonstrate mild enlargem ent. Encephalomalacia left occipital lobe redemonstrated with ex vacuo dilatation of the left adjacen t to the ventricular component. There is no evidence for intracranial hemorrhage or sulcal effacement. There is decreased attenuation about the periventricular white matter and deep white matter of both c erebral hemispheres, compatible with chronic small vessel ischemia. Differential diagnosis does inclu de demyelination. No mass effects are seen.No midline shift. Osseous calvarium is intact. If symptoms persist consider MRI. IMPRESSION: 1. Age related atrophic and chronic small vessel ischemic change without acute intracranial process s een at this time.
== END | disposition home or self-care (01) ==
LOC: RADCTMAIN 16:16
PROVIDERS: ATTEND Internal Medicine Interventional Cardiology
DX: I67.82 Cerebral ischemia (principal)
CPT/HCPCS: 70450